=== PATIENT | male | born 1985 | race Caucasian/White ===

== ENCOUNTER 2017-04-22 11:12 | Inpatient (IN) | payer MEDICAID ==
[~2017-04-22] VITALS: Ht 177.8 cm; Wt 71.6 kg
[2017-04-22] MEDS ORDERED: FOLIC ACID 1 MG TABLET PO ONE (11:30)
[2017-04-22] MEDS ORDERED: SODIUM CHLORIDE FLUSH 10ML SYR IVF ONE (11:30)
[2017-04-22] MEDS ORDERED: THIAMINE 100MG TABLET PO ONE (11:30)
[2017-04-22] MEDS ORDERED: LIDOCAINE 1%, 10ML INFIL ONE (11:30)
[2017-04-22] MEDS ORDERED: SODIUM CHLORIDE 0.9% 1,000ML IVBOLUS ONE (11:30)
[2017-04-22] MEDS ORDERED: LIDOCAINE 1%, 20ML ONE (11:39)
[2017-04-22] MEDS ORDERED: THIAMINE 100MG TABLET ONE (11:39)
[2017-04-22] MEDS ORDERED: LORazepam 2 MG/ML, 1ML ONE (11:40)
[2017-04-22] MEDS: LORazepam 2 MG/ML, 1ML IVPush PRN ×2 (11:46→14:03)
[2017-04-22 12:10] LABS: ASPARTATE AMINO TRANSFERASE 66 U/L (15-37); BLOOD UREA NITROGEN 9 mg/dL (7-18)
[2017-04-22] MEDS ORDERED: D5%-0.45NACL+KCL 20MEQ 1,000 ML IV SCH (14:01)
[2017-04-22 14:20] VITALS: BP 128/80
[2017-04-22] MEDS ORDERED: ENALAPRILAT 1.25 MG/ML, 2ML IVPush PRN (14:30)
[2017-04-22] MEDS ORDERED: LORazepam 2 MG/ML, 1ML IVPush PRN (14:30)
[2017-04-22] MEDS ORDERED: ONDANSETRON 2MG/ML, 2ML IVPush PRN (14:30)
[2017-04-22] MEDS ORDERED: TEMAZEPAM 15 MG CAPSULE PO PRN (14:30)
[2017-04-22] MEDS: HEPARIN 5,000 UNITS/ML, 1ML SQ SCH ×2 (15:47→23:45)
[2017-04-22 20:25] VITALS: BP 111/66
[2017-04-22] MEDS: D5%-0.45NACL+KCL 20MEQ 1,000 ML IV SCH (23:27)
[2017-04-23 01:40] VITALS: BP 116/76
[2017-04-23 05:52] LABS: BLOOD UREA NITROGEN 6 mg/dL (7-18)
[2017-04-23] MEDS: D5%-0.45NACL+KCL 20MEQ 1,000 ML IV SCH (06:13)
[2017-04-23 07:01] VITALS: BP 106/68
[2017-04-23] MEDS: HEPARIN 5,000 UNITS/ML, 1ML SQ SCH (08:00)
== END 2017-04-23 11:30 | disposition home or self-care (01) | DRG 897 ==
LOC: ED 11:29 → EDIP 12:33 → 4WST 14:04
PROVIDERS: ADMIT Internal Medicine; ATTEND Internal Medicine
PROC: 0HQ0XZZ Repair Scalp Skin, External Approach (ICD-10-PCS; principal; 2017-04-22)
DX: F10.239 Alcohol dependence with withdrawal, unspecified (principal); R56.9 Unspecified convulsions; K70.9 Alcoholic liver disease, unspecified; I10 Essential (primary) hypertension; S01.01XA Laceration without foreign body of scalp, initial encounter; W19.XXXA Unspecified fall, initial encounter; Z71.41 Alcohol abuse counseling and surveillance of alcoholic; Y93.89 Activity, other specified; Y92.89 Other specified places as the place of occurrence of the external cause; Y99.8 Other external cause status
CPT/HCPCS: 12002; 36415; 70450; 71010; 72125; 80048; 80053; 80307; 82140; 83690; 83735; 83880; 85025; 93005; 96360; J1644; J3490; J2060; J3480; J7030